=== PATIENT | male | born 1970 | race Caucasian/White ===

== ENCOUNTER 2016-06-29 14:54 | Emergency (ER) | payer OTHER ==
[~2016-06-29 14:54] MED LIST: HYDROCHLORTHIAZIDE PO; TRIA1CR TOP; TYLE325T5 PO
[2016-06-29] MEDS ORDERED: PERCOCET 5MG/325MG TAB As Ordered ONE (15:38)
[2016-06-29] MEDS ORDERED: valACYclovir HCL 500 MG TAB As Ordered ONE (15:40)
--- NOTE | 2016-06-29 15:59 | EDDOCDS ---
Physician Documentation [facility] Name: Eric Braden Age: 46 yrs Sex: Male : 1970 Arrival Date: 06/29/2016 Time: 14:54 Bed TR5 Private MD: [facility] Disposition: 06/29/16 15:37 Discharged to Home/Self Care. Impression: Zoster [herpes zoster] - C7. - Condition is Stable. - Discharge Instructions: Shingles. - Prescriptions for valacyclovir 1 gram Oral tablet - take 1 tablet by ORAL route 3 times per day for 7 days; 20 tablet. Percocet 5- 325 mg Oral Tablet - take 1 tablet by ORAL route every 6 hours As needed MDD: 4 tabs; 20 tablet. - Medication Reconciliation form. - Follow up: Emergency Department; When: As needed; Reason: Worsening of conditions. Follow up: [facility]; When: Call to arrange an appointment; Reason: Wound/Symptom Recheck, Recheck today's complaints, Continuance of care. - Problem is new. - Symptoms are unchanged. Historical: - Allergies: meloxicam (swollen feet); - Home Meds: 1. hydrochlorothiazide 12.5 mg Oral cap once daily 2. triamcinolone acetonide 0.1 % Topical lotn prn 3. vitamin b complex daily 4. vitamin d 2000 unitys daily - PMHx: Hypertension; Eczema; Heart Murmur; - PSHx: neck surgery; cyst removed from neck; - Social history: Smoking status: Patient uses tobacco products, current every day smoker. No barriers to communication noted, The patient speaks fluent Macedonian, Speaks appropriately for age. - : The pt / caregiver states he / she is not on anticoagulants. Home medication list is obtained from the patient. - Exposure Risk Screening:: None identified. Vital Signs: 06/29 14:57 BP 164 / 97; Pulse 80; Resp 18; Temp 98.6(T); Pulse Ox 97% on R/A; Weight 114.76 kg / dem1 253 lbs; Height 5 ft. 10 in. (177.80 cm); Pain 10/10; 14:57 Body Mass Index 36.30 (114.76 kg, 177.80 cm) dem1 MDM: 15:36 oxyCODONE-acetaminophen 5 mg-325 mg 1 tabs PO once ordered. cc10 15:36 valACYclovir 1000 mg PO once ordered. cc10 Administered Medications: 15:45 Drug: oxyCODONE-acetaminophen 1 tabs [oxycodone-acetaminophen 5 mg-325 mg tablet (1 jjr tabs)] Route: PO; 15:45 Drug: valACYclovir 1000 mg [valacyclovir 500 mg tablet (2 tabs)] Route: PO; jjr Signatures: Scarlet Gaviria RN RN srm Raymond, Jessica, RN RN jmoreliar Rocky Reddy, PAJacinta PA-Noman cc10 MTDD
--- NOTE | 2016-06-29 15:59 | EDDOCDS ---
Nurse's Notes [facility] Name: Eric Braden Age: 46 yrs Sex: Male : 1970 Arrival Date: 06/29/2016 Time: 14:54 Bed TR5 Private MD: [place] Letty Doswell Diagnosis: Zoster [herpes zoster]-C7 Presentation: 06/29 14:57 Presenting complaint: Patient states: afternoon started left neck pain and down srm left arm. hx of neck surgery in feb. no new injury. . pain up left side of neck when moves arm. Risk Factors No acute neurological deficit is noted. Adult Sepsis Screening: The patient does not have new or worsening altered mentation. Patient's respiratory rate is less than 22. Systolic blood pressure is greater than 100. Patient has a qSOFA score of 0- Negative Sepsis Screen. Suicide/Homicide risk assessment- the patient denies having any suicidal and/or homicidal ideations and does not present with any other emotional, behavioral or mental health complaints. Status: Patient is not a medical service technician or dependent. Transition of care: patient was not received from another setting of care. 14:57 Acuity: KRAIG Level 4 srm 14:57 Method Of Arrival: Walkin/Carried/Asstd srm Triage Assessment: 15:02 General: Appears in no apparent distress, Behavior is appropriate for age, cooperative. srm Pain: Pain currently is 8 out of 10 on a pain scale. Musculoskeletal: Reports left neck pain. 15:03 Pt Declines HIV testing. srm Historical: - Allergies: meloxicam (swollen feet); - Home Meds: 1. hydrochlorothiazide 12.5 mg Oral cap once daily 2. triamcinolone acetonide 0.1 % Topical lotn prn 3. vitamin b complex daily 4. vitamin d 2000 unitys daily - PMHx: Hypertension; Eczema; Heart Murmur; - PSHx: neck surgery; cyst removed from neck; - Social history: Smoking status: Patient uses tobacco products, current every day smoker. No barriers to communication noted, The patient speaks fluent Belarusian, Speaks appropriately for age. - : The pt / caregiver states he / she is not on anticoagulants. Home medication list is obtained from the patient. - Exposure Risk Screening:: None identified. Screenin:58 Screening information is obtained from the patient. Fall risk: No risks identified. jjr Assistance ADL's: requires no assistance with activities of daily living. Abuse/DV Screen: The patient / caregiver reports he/she is: not in a situation that causes fear, pain or injury. Nutritional screening: No deficits noted. Advance Directives: There is no active DNR order. home support is adequate. Assessment: 15:57 General: Appears in no apparent distress, well nourished, well groomed, Behavior is jjr appropriate for age. Pain: Location: anterior aspect of left shoulder and dorsal aspect of left forearm. Neurological: No deficits noted. Derm: Rash noted that is red, raised, on thoracic area, anterior aspect of left shoulder and dorsal aspect of left forearm. Musculoskeletal: reluctant to use left arm. Vital Signs: 14:57 BP 164 / 97; Pulse 80; Resp 18; Temp 98.6(T); Pulse Ox 97% on R/A; Weight 114.76 kg; dem1 Height 5 ft. 10 in. (177.80 cm); Pain 10/10; 14:57 Body Mass Index 36.30 (114.76 kg, 177.80 cm) [facility] Vitals: 14:57 Log In Time: June 29, 2016 at 14:54. [facility] ED Course: 14:55 Patient visited by Bill France. dem1 14:55 Patient moved to Waiting dem1 14:56 Mauricio Mariee PA is Private Physician. dem1 14:57 [facility] is Private Physician. dem1 14:57 Patient moved to Pre RCE srm 14:58 Triage Initiated srm 15:03 Patient moved to Triage 2 srm 15:29 [facility] cc10 15:29 Rui Cortez MD is Attending Physician. cc10 15:29 Patient visited by Rocky Reddy PA-C. cc10 15:29 Patient visited by Rocky Reddy PA-C. cc10 15:37 [facility] is Referral Physician. cc10 15:47 Patient moved to TR5 jjr 15:58 The patient / caregiver is instructed regarding the plan of care and ED course. jjr 15:58 No IV's were initiated during this patient's visit. No procedures done that require jjr assistance. Administered Medications: 15:45 Drug: oxyCODONE-acetaminophen 1 tabs [oxycodone-acetaminophen 5 mg-325 mg tablet (1 jjr tabs)] Route: PO; 15:45 Drug: valACYclovir 1000 mg [valacyclovir 500 mg tablet (2 tabs)] Route: PO; jjr Order Results: There are currently no results for this order. Outcome: 15:37 Discharge ordered by Provider. cc10 15:58 Discharge Assessment: patient administered narcotics - yes. Pt provided with safe jjr discharge. The following High Risk Discharge criteria are identified: None. Discharged to home ambulatory, with significant other. Condition: stable. Discharge instructions given to patient, Instructed on discharge instructions, follow up and referral plans. medication usage, Demonstrated understanding of instructions, medications, Prescriptions given X 2. No special radiology studies were completed. Property sent home with patient. 15:59 Patient left the ED. jjr Signatures: Scarlet Gaviria RN Lillie Garcia RN RN jjr Mack, Demeishia dem1 [place]iski, Colin, PA-C PA-C cc10 [facility]
--- NOTE | 2016-07-01 16:59 | EDDOCDS ---
Physician Documentation [facility] Name: Eric Braden Age: 46 yrs Sex: Male : 1970 Arrival Date: 06/29/2016 Time: 14:54 Bed TR5 Private MD: [facility] Disposition: 06/29/16 15:37 Discharged to Home/Self Care. Impression: Zoster [herpes zoster] - C7. - Condition is Stable. - Discharge Instructions: Shingles. - Prescriptions for valacyclovir 1 gram Oral tablet - take 1 tablet by ORAL route 3 times per day for 7 days; 20 tablet. Percocet 5- 325 mg Oral Tablet - take 1 tablet by ORAL route every 6 hours As needed MDD: 4 tabs; 20 tablet. - Medication Reconciliation form. - Follow up: Emergency Department; When: As needed; Reason: Worsening of conditions. Follow up: [facility]; When: Call to arrange an appointment; Reason: Wound/Symptom Recheck, Recheck today's complaints, Continuance of care. - Problem is new. - Symptoms are unchanged. Historical: - Allergies: meloxicam (swollen feet); - Home Meds: 1. hydrochlorothiazide 12.5 mg Oral cap once daily 2. triamcinolone acetonide 0.1 % Topical lotn prn 3. vitamin b complex daily 4. vitamin d 2000 unitys daily - PMHx: Hypertension; Eczema; Heart Murmur; - PSHx: neck surgery; cyst removed from neck; - Social history: Smoking status: Patient uses tobacco products, current every day smoker. No barriers to communication noted, The patient speaks fluent Estonian, Speaks appropriately for age. - : The pt / caregiver states he / she is not on anticoagulants. Home medication list is obtained from the patient. - Exposure Risk Screening:: None identified. Vital Signs: 06/29 14:57 BP 164 / 97; Pulse 80; Resp 18; Temp 98.6(T); Pulse Ox 97% on R/A; Weight 114.76 kg / dem1 253 lbs; Height 5 ft. 10 in. (177.80 cm); Pain 10/10; 14:57 Body Mass Index 36.30 (114.76 kg, 177.80 cm) dem1 MDM: 15:36 oxyCODONE-acetaminophen 5 mg-325 mg 1 tabs PO once ordered. cc10 15:36 valACYclovir 1000 mg PO once ordered. cc10 17:50 T-Sheet-- Draft Copy was scanned into [employer] and attached to record. [facility] 06/30 07:53 [facility] Payment Agreement was scanned into [employer] and attached to record. lg Administered Medications: 06/29 15:45 Drug: oxyCODONE-acetaminophen 1 tabs [oxycodone-acetaminophen 5 mg-325 mg tablet (1 jjr tabs)] Route: PO; 15:45 Drug: valACYclovir 1000 mg [valacyclovir 500 mg tablet (2 tabs)] Route: PO; jjr Signatures: Scarlet Gaviria, RN Jake Green Reg Reg lg Lillie Day RN RN jjr Rocky Reddy, LILY PAJacinta cc Madhavi Callaway The chart was reviewed and I authenticate all verbal orders and agree with the evaluation and treatment provided.Attachments: 17:50 T-Sheet-- Draft Copy [facility] 06/30 07:53 [facility] Payment Agreement lg Chart Complete MTDD
--- NOTE | 2016-07-01 16:59 | EDDOCDS ---
Nurse's Notes [facility] Name: Eric Braden Age: 46 yrs Sex: Male : 1970 Arrival Date: 06/29/2016 Time: 14:54 Bed TR5 Private MD: [place] Letty Fisher Diagnosis: Zoster [herpes zoster]-C7 Presentation: 06/29 14:57 Presenting complaint: Patient states: afternoon started left neck pain and down srm left arm. hx of neck surgery in feb. no new injury. . pain up left side of neck when moves arm. Risk Factors No acute neurological deficit is noted. Adult Sepsis Screening: The patient does not have new or worsening altered mentation. Patient's respiratory rate is less than 22. Systolic blood pressure is greater than 100. Patient has a qSOFA score of 0- Negative Sepsis Screen. Suicide/Homicide risk assessment- the patient denies having any suicidal and/or homicidal ideations and does not present with any other emotional, behavioral or mental health complaints. 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 Transition of care: patient was not received from another setting of care. 14:57 Acuity: KRAIG Level 4 srm 14:57 Method Of Arrival: Walkin/Carried/Asstd srm Triage Assessment: 15:02 General: Appears in no apparent distress, Behavior is appropriate for age, cooperative. srm Pain: Pain currently is 8 out of 10 on a pain scale. Musculoskeletal: Reports left neck pain. 15:03 Pt Declines HIV testing. srm Historical: - Allergies: meloxicam (swollen feet); - Home Meds: 1. hydrochlorothiazide 12.5 mg Oral cap once daily 2. triamcinolone acetonide 0.1 % Topical lotn prn 3. vitamin b complex daily 4. vitamin d 2000 unitys daily - PMHx: Hypertension; Eczema; Heart Murmur; - PSHx: neck surgery; cyst removed from neck; - Social history: Smoking status: Patient uses tobacco products, current every day smoker. No barriers to communication noted, The patient speaks fluent Polish, Speaks appropriately for age. - : The pt / caregiver states he / she is not on anticoagulants. Home medication list is obtained from the patient. - Exposure Risk Screening:: None identified. Screenin:58 Screening information is obtained from the patient. Fall risk: No risks identified. jjr Assistance ADL's: requires no assistance with activities of daily living. Abuse/DV Screen: The patient / caregiver reports he/she is: not in a situation that causes fear, pain or injury. Nutritional screening: No deficits noted. Advance Directives: There is no active DNR order. home support is adequate. Assessment: 15:57 General: Appears in no apparent distress, well nourished, well groomed, Behavior is jjr appropriate for age. Pain: Location: anterior aspect of left shoulder and dorsal aspect of left forearm. Neurological: No deficits noted. Derm: Rash noted that is red, raised, on thoracic area, anterior aspect of left shoulder and dorsal aspect of left forearm. Musculoskeletal: reluctant to use left arm. Vital Signs: 14:57 BP 164 / 97; Pulse 80; Resp 18; Temp 98.6(T); Pulse Ox 97% on R/A; Weight 114.76 kg; dem1 Height 5 ft. 10 in. (177.80 cm); Pain 10/10; 14:57 Body Mass Index 36.30 (114.76 kg, 177.80 cm) [facility] Vitals: 14:57 Log In Time: June 29, 2016 at 14:54. [facility] ED Course: 14:55 Patient visited by Bill France. dem1 14:55 Patient moved to Waiting dem1 14:56 Mauricio Mariee PA is Private Physician. dem1 14:57 [facility] is Private Physician. dem1 14:57 Patient moved to Pre RCE srm 14:58 Triage Initiated srm 15:03 Patient moved to Triage 2 srm 15:29 Rocky Reddy [facility] cc10 15:29 Rui Cortez MD is Attending Physician. cc10 15:29 Patient visited by Rocky Reddy PA-C. cc10 15:29 Patient visited by Rocky Reddy PA-C. cc10 15:37 [facility] is Referral Physician. cc10 15:47 Patient moved to TR5 jjr 15:58 The patient / caregiver is instructed regarding the plan of care and ED course. jjr 15:58 No IV's were initiated during this patient's visit. No procedures done that require jjr assistance. 17:50 T-Sheet-- Draft Copy was scanned into [employer] and attached to record. [facility] 06/30 07:53 [facility] Payment Agreement was scanned into [employer] and attached to record. lg Administered Medications: 06/29 15:45 Drug: oxyCODONE-acetaminophen 1 tabs [oxycodone-acetaminophen 5 mg-325 mg tablet (1 jjr tabs)] Route: PO; 15:45 Drug: valACYclovir 1000 mg [valacyclovir 500 mg tablet (2 tabs)] Route: PO; jjr Order Results: There are currently no results for this order. Outcome: 15:37 Discharge ordered by Provider. cc10 15:58 Discharge Assessment: patient administered narcotics - yes. Pt provided with safe jjr discharge. The following High Risk Discharge criteria are identified: None. Discharged to home ambulatory, with significant other. Condition: stable. Discharge instructions given to patient, Instructed on discharge instructions, follow up and referral plans. medication usage, Demonstrated understanding of instructions, medications, Prescriptions given X 2. No special radiology studies were completed. Property sent home with patient. 15:59 Patient left the ED. jjr Signatures: Scarlet Gaviria, RN RN srm Jake Benton, Reg Reg lg Lillie Day RN RN jjr Bill France Colin, PA-C PAJacinta cc10 Madhavi Callaway Chart Complete MTDD
--- NOTE | 2016-07-01 16:59 | EDDOCDS ---
Physician Documentation [facility] Name: Eric Braden Age: 46 yrs Sex: Male : 1970 Arrival Date: 06/29/2016 Time: 14:54 Bed TR5 Private MD: [facility] Disposition: 06/29/16 15:37 Discharged to Home/Self Care. Impression: Zoster [herpes zoster] - C7. - Condition is Stable. - Discharge Instructions: Shingles. - Prescriptions for valacyclovir 1 gram Oral tablet - take 1 tablet by ORAL route 3 times per day for 7 days; 20 tablet. Percocet 5- 325 mg Oral Tablet - take 1 tablet by ORAL route every 6 hours As needed MDD: 4 tabs; 20 tablet. - Medication Reconciliation form. - Follow up: Emergency Department; When: As needed; Reason: Worsening of conditions. Follow up: [facility]; When: Call to arrange an appointment; Reason: Wound/Symptom Recheck, Recheck today's complaints, Continuance of care. - Problem is new. - Symptoms are unchanged. Historical: - Allergies: meloxicam (swollen feet); - Home Meds: 1. hydrochlorothiazide 12.5 mg Oral cap once daily 2. triamcinolone acetonide 0.1 % Topical lotn prn 3. vitamin b complex daily 4. vitamin d 2000 unitys daily - PMHx: Hypertension; Eczema; Heart Murmur; - PSHx: neck surgery; cyst removed from neck; - Social history: Smoking status: Patient uses tobacco products, current every day smoker. No barriers to communication noted, The patient speaks fluent Greenlandic, Speaks appropriately for age. - : The pt / caregiver states he / she is not on anticoagulants. Home medication list is obtained from the patient. - Exposure Risk Screening:: None identified. Vital Signs: 06/29 14:57 BP 164 / 97; Pulse 80; Resp 18; Temp 98.6(T); Pulse Ox 97% on R/A; Weight 114.76 kg / dem1 253 lbs; Height 5 ft. 10 in. (177.80 cm); Pain 10/10; 14:57 Body Mass Index 36.30 (114.76 kg, 177.80 cm) dem1 MDM: 15:36 oxyCODONE-acetaminophen 5 mg-325 mg 1 tabs PO once ordered. cc10 15:36 valACYclovir 1000 mg PO once ordered. cc10 17:50 T-Sheet-- Draft Copy was scanned into [employer] and attached to record. [facility] 06/30 07:53 [facility] Payment Agreement was scanned into [employer] and attached to record. lg Administered Medications: 06/29 15:45 Drug: oxyCODONE-acetaminophen 1 tabs [oxycodone-acetaminophen 5 mg-325 mg tablet (1 jjr tabs)] Route: PO; 15:45 Drug: valACYclovir 1000 mg [valacyclovir 500 mg tablet (2 tabs)] Route: PO; jjr Signatures: Scarlet Gaviria, RN Jake Green Reg Reg lg Lillie Day RN RN jjr Rocky Reddy, LILY PAJacinta cc Madhavi Callaway The chart was reviewed and I authenticate all verbal orders and agree with the evaluation and treatment provided.Attachments: 17:50 T-Sheet-- Draft Copy [facility] 06/30 07:53 [facility] Payment Agreement lg Chart Complete MTDD
== END 2016-06-29 15:59 | disposition home or self-care (01) ==
LOC: M ED 14:54
DX: B02.9 Zoster without complications (principal); I10 Essential (primary) hypertension; L30.9 Dermatitis, unspecified; R01.1 Cardiac murmur, unspecified; Z79.899 Other long term (current) drug therapy; Z88.6 Allergy status to analgesic agent; F17.210 Nicotine dependence, cigarettes, uncomplicated

== ENCOUNTER → 2019-11-04 | Outpatient (CLI) | payer OTHER ==
[~2019-11-04] MED LIST changes: +D3 +TAB PO; +METO1TAB7 PO; +MULTCAP PO; +ROSU40TA4 PO; +TRIA0.1C60 TOP; -TRIA1CR TOP
[2019-11-04 13:32] LABS: BASO # 0.1 10^3/uL (0.0-0.2); BASO % 0.9 % (0.0-1.0); EOS # 0.2 10^3/uL (0.0-0.5); EOS % 2.7 % (0.0-3.0); HEMATOCRIT 46.3 % (42.0-52.0); HEMOGLOBIN 15.3 g/dl (13.5-17.5); LYMPH # 3.3 10^3/uL (1.5-5.0); LYMPH % 42.7 % (24.0-44.0); MEAN CORPUSCULAR HEMOGLOBIN 29.1 pg (27.0-33.0); MONO # 0.9 10^3/uL (0.0-0.8); MONO % 11.6 % (0.0-5.0); NEUTROPHILS # 3.2 10^3/uL (1.5-8.5); NEUTROPHILS % 41.7 % (36.0-66.0); PLATELET COUNT, AUTOMATED 226 10^3/uL (150-450); RED BLOOD COUNT 5.26 10^6/uL (4.30-6.10); WHITE BLOOD COUNT 7.7 10^3/uL (4.0-10.0)
[2019-11-04 14:05] LABS: ALBUMIN 4.3 GM/DL (3.2-5.2); ALT/SGPT 32 U/L (12-78); BILIRUBIN,TOTAL 0.6 MG/DL (0.2-1.0); BLOOD UREA NITROGEN 12 MG/DL (7-18); CALCIUM LEVEL 9.3 MG/DL (8.5-10.1); CARBON DIOXIDE LEVEL 29 MEQ/L (21-32); CHLORIDE LEVEL 108 MEQ/L (98-107); CREATININE FOR GFR 1.08 MG/DL (0.70-1.30); GLOMERULAR FILTRATION RATE > 60.0 (>60); GLUCOSE, FASTING 68 MG/DL (70-100); POTASSIUM SERUM 4.3 MEQ/L (3.5-5.1); SODIUM LEVEL 141 MEQ/L (136-145); TOTAL PROTEIN 7.2 GM/DL (6.4-8.2)
--- NOTE | 2019-11-05 08:45 | ECGEPIP ---
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
== END ==
LOC: M LAB 12:41
PROVIDERS: ATTEND Podiatrist
DX: M20.12 Hallux valgus (acquired), left foot (principal); M79.672 Pain in left foot; R00.0 Tachycardia, unspecified

== ENCOUNTER 2019-11-13 06:29 | Day surgery (SDC) | payer OTHER ==
[~2019-11-13] VITALS: Ht 177.8 cm; Wt 106.6 kg
[2019-11-13] MEDS ORDERED: ceFAZolin SOD 2 GM in IV 1 EA IV ONE (07:00)
[2019-11-13] MEDS ORDERED: LR 1,000 ML IV ONE (07:00)
[2019-11-13] MEDS ORDERED: fentaNYL 100 MCG/2 ML INJECTION (J3010) As Ordered ONE (07:08)
[2019-11-13] MEDS ORDERED: propofoL 200 MG/20 ML VIAL As Ordered ONE ×2 (07:08→09:02)
[2019-11-13] MEDS ORDERED: ONDANSETRON 4MG/2ML VIAL As Ordered ONE (07:08)
[2019-11-13] MEDS ORDERED: LIDOCAINE 2% 100MG/5ML SDV (FOR ANES.) As Ordered ONE (07:08)
[2019-11-13] MEDS ORDERED: MIDAZOLAM INJ 2MG/2ML VIAL (J2250 PER 1MG) As Ordered ONE (07:08)
[2019-11-13] MEDS ORDERED: dexameTHASONE 4 MG/ML 1ML VIAL (J1100 PER 1MG) As Ordered ONE (07:15)
[2019-11-13] MEDS ORDERED: BACITRACIN PWD 50,000 UNITS VIAL As Ordered ONE (07:15)
[2019-11-13] MEDS ORDERED: LIDOCAINE 2% MDV 20ML VIAL As Ordered ONE ×2 (07:15→07:58)
[2019-11-13] MEDS ORDERED: ROPIvacaine 0.5% 30ML INJECTION (J2795 PER 1MG) As Ordered ONE (07:15)
[2019-11-13] MEDS ORDERED: BUPIVACAINE HCL 0.5% 30 ML VIAL As Ordered ONE (07:15)
[2019-11-13] MEDS ORDERED: NEOSPORIN GU IRRIG 20 ML VIAL As Ordered ONE (07:15)
[2019-11-13] MEDS ORDERED: ACETAMINOPHEN 1000MG 100ML IV BTL (OFIRMEV) (J0131 PER 10MG) As Ordered ONE (07:44)
[2019-11-13] MEDS ORDERED: ePHEDrine SULFATE 25 MG/5 ML(5MG/ML) SYRINGE As Ordered ONE (09:02)
[2019-11-13] MEDS ORDERED: PHENYLephrine HCL 500 MCG/5 ML (100MCG/ML) SYRINGE (J2370) As Ordered ONE (09:02)
--- NOTE | 2019-11-13 10:15 | REP ---
C-ARM VIEWS, LEFT FOOT: Two C-arm views left foot performed. There is a metallic plate and multiple screws measuring the medial cuneiform and base of 1st metatarsal. The osseous structures appear well aligned. 21 seconds of fluoroscopy time utilized. Electronically Signed by Noble Hagen MD 11/15/2019 10:59 P
[2019-11-13 11:09] VITALS: BP 113/60
--- NOTE | 2019-11-13 11:26 | REP ---
LEFT FOOT THREE VIEWS: Three views of the left foot performed. Metallic plate and multiple screws bridge the medial cuneiform bone and the base of the 1st metatarsal. Osseous structures are well aligned. Overlying cast obscures underlying osseous detail. Electronically Signed by Noble Hagen MD 11/15/2019 11:05 P
== END 2019-11-13 11:33 | disposition home or self-care (01) ==
LOC: M SDC 06:29
PROVIDERS: ATTEND Podiatrist
DX: M20.12 Hallux valgus (acquired), left foot (principal); I10 Essential (primary) hypertension; G47.30 Sleep apnea, unspecified; Z79.899 Other long term (current) drug therapy; Z88.8 Allergy status to other drugs, medicaments and biological substances
CPT/HCPCS: 28297; 73630; 76000; 87486; 87581; 87633; 87798; 88300; 97116; C1713; J0131; J0690; J1100; J2250; J2370; J2405; J2795; J3010